=== PATIENT | male | born 1945 | race Caucasian/White ===

== ENCOUNTER → 2016-12-01 | Outpatient (REF) | LOC: ZLAB.WCH 14:57 | DX: Z01.89 Encounter for other specified special examinations (principal) | CPT/HCPCS: G0103 ==

== ENCOUNTER → 2017-12-17 | Outpatient (REF) | LOC: ZLAB.WCH 15:50 | DX: Z01.89 Encounter for other specified special examinations (principal) | CPT/HCPCS: G0103 ==

== ENCOUNTER → 2018-12-15 | Outpatient (REF) | LOC: ZLAB.WCH 13:51 | DX: Z01.89 Encounter for other specified special examinations (principal) | CPT/HCPCS: G0103 ==

== ENCOUNTER → 2022-07-10 | Outpatient (CLI) | payer MEDICARE, OTHER ==
[~2022-07-10] VITALS: Ht 177.8 cm; Wt 78.2 kg
[~2022-07-10] MED LIST: ASPIRIN 81M81 MG/TA2 PO; NEURONTIN300 MG/CAP PO; ZOCOR5 MG PO
[2022-07-10 09:33] VITALS: BP 155/94; PULSE 82; TEMP 97.5
[2022-07-10 11:10] VITALS: BP 150/100; PULSE 69
[2022-07-10 11:30] VITALS: BP 164/98; PULSE 69
== END ==
LOC: COL.RAD 09:13
DX: M54.51 Vertebrogenic low back pain (principal); M54.16 Radiculopathy, lumbar region
CPT/HCPCS: J3301